=== PATIENT | male | born 1990 | race Hispanic/Latino ===

== ENCOUNTER 2017-08-07 06:30 | Emergency (ER) | payer OTHER ==
[2017-08-07] MEDS ORDERED: Ketorolac Tromethamine 60 MG/2 ML VIAL ONE (06:47)
--- NOTE | 2017-08-07 20:20 | RAD ---
CHEST TWO VIEWS 08/07/17 The heart is normal in size and the lungs are clear. No infiltrate, effusion, pneumothorax, or other cause for chest pain was seen. The mediastinum appears normal an the trachea midline. IMPRESSION: No acute thoracic finding. POS: HOME
== END 2017-08-07 07:31 | disposition home or self-care (01) ==
LOC: BURERS 06:30
DX: S29.011A Strain of muscle and tendon of front wall of thorax, initial encounter (principal); X58.XXXA Exposure to other specified factors, initial encounter
CPT/HCPCS: 71046; 93005; 96372; J1885